=== PATIENT | male | born 1980 | race Caucasian/White ===

== ENCOUNTER 2023-07-17 22:33 | Emergency (ER) | payer OTHER, SELFPAY ==
[2023-07-17 23:11] VITALS: BP 157/90; PULSE 106; RESP 20; TEMP 37.2; O2SAT 100
--- NOTE | 2023-07-18 00:41 | ED_ITS ---
HPI - General Adult General Chief complaint: Insect Bite Stated complaint: sores on head Time Seen by Provider: 07/17/23 23:13 History of Present Illness HPI narrative: Pt reports he has had dx of scabies [id number] . Has been using a creme for this. States it is not improving, continues to have itching on head/neck. 43-year-old man presenting to the emergency department with concern of scabies. Itchy rash diagnosed initially about a month ago. It sounds as though was johnnie ated with permethrin cream. Here with significant other they describe deep cleaning their living environment. They believe they obtain this from a hotel. Are somewhat transient currently I believe in a camper trailer. No scrapings have been done. He says my liver is fine. Apparently after permethrin treatment reports getting briefly better. Related Data Previous Rx's ?Medication ?Instructions ?Recorded diphenhydramine HCl 25 mg capsule 25 - 50 mg (1 - 2 x 25 mg) PO TID 07/18/23 PRN itch #30 caps ivermectin 3 mg tablet 24 mg (8 x 3 mg) PO DAILY 1 dose 07/18/23 #8 tabs Allergies Allergy/AdvReac Type Severity Reaction Status Date / Time No Known Drug Allergies Allergy Verified 07/17/23 23:14 Review of Systems Status of ROS: Reports: 6 or more systems reviewed and unremarkable except as noted in History and below PFSH [facility] [place] Social History Smoking Status: Current every day smoker Second hand tobacco smoke exposure: Yes How often do you have a drink containing alcohol: never AUDIT-C Alcohol total score: 0 Non-prescribed substance use: denies use Exam Narrative: Exam Narrative: Pleasant. NAD. Macular papular faintly erythematous eruptions with area excoriations right now at the center upper back and neck. Some scattered around the waist as well. Nothing really on the hands. None in the antecubital fossa. Does also have seborrheic changes about the scalp/skin as well. Const: Vital Signs, click to edit/add: Vital Signs - 24 hr 07/17/23 23:11 Temperature 98.9 F Pulse Rate [Pulse Oximeter] 106 H Respiratory Rate 20 Blood Pressure [Ri ght Upper Arm] 157/90 H Pulse Oximetry 100 Oxygen Delivery Me thod Room Air Documenting provider has reviewed patient's vital signs: yes Course Vital Signs Vital signs: Initial Vital Signs Temperature 98.9 F 07/17/23 23:11 Temperature Source Temporal Artery Scan 07/17/23 23:11 Pulse Rate 106 H 07/17/23 23:11 Respiratory Rate 20 07/17/23 23:11 Blood Pressure 157/90 H 07/17/23 23:11 Blood Pressure Mean 112 H 07/17/23 23:11 Blood Pressure Position Sitting 07/17/23 23:11 Pulse Oximetry 100 07/17/23 23:11 Oxygen Delivery Method Room Air 07/17/23 23:11 Vital Signs Temperature 98.9 F 07/17/23 23:11 Pulse Rate 106 H 07/17/23 23:11 Respiratory Rate 20 07/17/23 23:11 Blood Pressure 157/90 H 07/17/23 23:11 Pulse Oximetry 100 07/17/23 23:11 Oxygen Delivery Method Room Air 07/17/23 23:11 Temperature 98.9 F 07/18/23 00:50 Pulse Rate 89 07/18/23 00:50 Respiratory Rate 20 07/18/23 00:50 Blood Pressure 145/84 H 07/18/23 00:50 Pulse Oximetry 100 07/18/23 00:49 Oxygen Delivery Method Room Air 07/18/23 00:49 Medical Decision Making MDM Narrative Medical decision making narrative: I am not absolutely convinced of scabies. Did propose scraping but I do not know what lesion I would go to at this point. Seborrhea might be contributing. No evidence of lice otherwise in his scalp. He seems familiar with this diagnoses/symptoms/treatment. We discussed then topical cream or oral options. He would like to try oral option instead. Wanting also something for itch which I suppose I would recommend oral diphenhydramine at this point. See patient discharge plan for further discussion/plan Discharge Plan Discharge Clinical Impression: Itch Patient Disposition: Home w/ Parent or Adult Condition: Stable Additional Instructions: While it can make you tired, diphenhydramine is probably most effective for itch. Can take 25-50 mg per dose. Otherwise could take loratadine or similar generic medication as a less sedating antihistamine. Prescribing this 1 time dose of ivermectin as discussed. This can be quite effective for scabies but takes a week or so to complete treatment. Remember to clean and heat all bedding/linen and clothing. Deep clean your living environment. Prescriptions: New diphenhydramine HCl 25 mg capsule 25 - 50 mg PO TID PRN (Reason: itch) Qty: 30 0RF ivermectin 3 mg tablet 24 mg PO DAILY Qty: 8 0RF Follow Up/Referrals: Provider,Not a Local [Primary Care Provider] - Stand Alone Forms: [employer] Info Instructions
[2023-07-18 00:49] VITALS: BP 145/84; PULSE 89; RESP 20; TEMP 37.2; O2SAT 100
[2023-07-18 00:50] VITALS: BP 145/84; PULSE 89; RESP 20; TEMP 37.2
== END 2023-07-18 00:50 | disposition home or self-care (01) ==
PROVIDERS: Emergency Provider Family Medicine
DX: R21 Rash and other nonspecific skin eruption (principal); L29.9 Pruritus, unspecified
CPT/HCPCS: 99283; 99284